=== PATIENT | female | born 1945 | race Caucasian/White ===

== ENCOUNTER 2017-09-25 12:08 | Inpatient (IN) ==
[2017-09-25] MEDS ORDERED: ONDANSETRON 4 MG/2 ML VIAL IV PRN (12:39)
[2017-09-25] MEDS ORDERED: ASPIRIN 325 MG TABLET PO STA (12:39)
[2017-09-25] MEDS ORDERED: NITROGLYCERIN 2% OINT 1 INCH/GM PACK TOP ONE (13:04)
[2017-09-25] MEDS ORDERED: NITROGLYCERIN 2% OINT 1 INCH/GM PACK TOP STA (13:04)
[2017-09-25] MEDS ORDERED: ONDANSETRON 4 MG/2 ML VIAL ONE (13:04)
[2017-09-25 13:27] LABS: Basophils # 0.1 10*3/uL (0.0-0.2); Basophils % 0.7 % (0.0-0.8); Eosinophils # 0.5 10*3/uL (0.0-0.87); Eosinophils % 5.9 % (0.00-10.9); Hematocrit 33.5 VOL% (35.7-47.0); Hemoglobin 10.7 GM/DL (12.0-16.0); Immature Granulocytes % 0.3 %; Immature Granulocytes Absolute 0.03 #; Lymphocytes # 2.8 10*3/uL (1.4-4.0); Lymphocytes % 32.1 % (21.3-54.2); Mean Corpuscular HGB Conc 31.9 GM/DL (32-36); Mean Corpuscular Hemoglobin 30 PG (27-34); Mean Corpuscular Volume 94.1 FL (87-102); Mean Platelet Volume 8.2 FL (9.6-12.0); Monocytes # 0.6 10*3/uL (0.11-0.8); Monocytes % 7.5 % (1.7-12.7); Neutrophils # 4.6 10*3/uL (1.4-7.4); Neutrophils % 53.5 % (38.7-73.9); Platelet Count 411 T/CUMM (130-400); Red Blood Count 3.56 MC/CUMM (3.8-5.5); White Blood Count 8.6 T/CUMM (4-12)
[2017-09-25 13:31] LABS: Apearance,Urine CLEAR (Clear); Bilirubin,Urine Negative (Negative); Blood, Urine Negative (Negative); Glucose,Urine (UA) Negative (Negative); Ketones,Urine Negative (Negative); Mucus,Urine Occasional /LPF (Occasional); Nitrite,Urine Negative (Negative); Protein,Urine Negative; RBC,Urine 1 /HPF (0-4); Squamous Epithelial Cell,Urine Occasional /HPF (0-10); Urine Color Yellow (Yellow); Urine Specific Gravity 1.004 (1.001-1.035); Urine Urobilinogen < 2.0 EU/DL (0.2-1.0); WBC,Urine 2 /HPF (0-6)
[2017-09-25 13:35] LABS: PT Patient Result 10.2 SECS; Partial Thromboplastin Time 24.2 SECS (0-40)
[2017-09-25 13:56] LABS: Albumin 3.5 G/DL (3.4-5.0); Bilirubin,Total 0.4 MG/DL (0.2-1.0); Calcium 9.3 MG/DL (8.5-10.1); Osmolality,Calculated 269.8 MOS/KG (273-304); Potassium 4.2 MMOL/L (3.5-5.1); Total Protein 6.7 G/DL (6.4-8.3)
[2017-09-25] MEDS ORDERED: DEXTROSE 50% 25 GM/50 ML VIAL IV PRN (17:19)
[2017-09-25] MEDS ORDERED: GLUCAGON 1 MG VIAL IM PRN (17:19)
[2017-09-25] MEDS ORDERED: ACETAMINOPHEN 500 MG TABLET PO PRN (17:19)
[2017-09-25] MEDS ORDERED: LORazepam 1 MG TABLET PO PRN (17:19)
[2017-09-25] MEDS: NITROGLYCERIN 2% OINT 1 INCH/GM PACK TOP SCH (18:26)
[2017-09-25] MEDS ORDERED: ATORVASTATIN 40 MG TABLET PO SCH (21:00)
[2017-09-25] MEDS: PANTOPRAZOLE 40 MG TABLET PO SCH (21:41)
[2017-09-25] MEDS: FLUTICASONE 50 MCG NASAL SPRAY 16 GM BOTTLE BOTH NARES SCH (21:42)
[2017-09-26] MEDS: NITROGLYCERIN 2% OINT 1 INCH/GM PACK TOP SCH ×4 (01:02→17:15)
[2017-09-26 06:16] LABS: Basophils # 0.1 10*3/uL (0.0-0.2); Basophils % 0.6 % (0.0-0.8); Eosinophils # 0.4 10*3/uL (0.0-0.87); Eosinophils % 4.5 % (0.00-10.9); Hematocrit 31.2 VOL% (35.7-47.0); Immature Granulocytes % 0.3 %; Immature Granulocytes Absolute 0.03 #; Lymphocytes # 2.3 10*3/uL (1.4-4.0); Mean Corpuscular HGB Conc 32.1 GM/DL (32-36); Mean Corpuscular Hemoglobin 30 PG (27-34); Mean Corpuscular Volume 93.4 FL (87-102); Mean Platelet Volume 8.4 FL (9.6-12.0); Monocytes # 0.7 10*3/uL (0.11-0.8); Neutrophils # 5.6 10*3/uL (1.4-7.4); Neutrophils % 61.6 % (38.7-73.9); Platelet Count 370 T/CUMM (130-400); Red Blood Count 3.34 MC/CUMM (3.8-5.5); Red Cell Distribution Width 11.9 % (9.3-17.3); White Blood Count 9.1 T/CUMM (4-12)
[2017-09-26 07:15] LABS: Risk Ratio 2.38; Thyroid Stimulating Hormone 3.88 uIU/ml (0.358-3.74); VLDL CHOLESTEROL 18.6 MG/DL
[2017-09-26] MEDS: PANTOPRAZOLE 40 MG TABLET PO SCH (08:39)
[2017-09-26] MEDS ORDERED: ASPIRIN EC 81 MG TABLET PO SCH (09:00)
[2017-09-26] MEDS ORDERED: PHENAZOPYRIDINE 95 MG TABLET PO SCH (09:00)
[2017-09-26] MEDS ORDERED: VENLAFAXINE XR 37.5 MG CAPSULE PO SCH (09:00)
[2017-09-26] MEDS ORDERED: DOCUSATE/SENNA 50-8.6 MG TABLET PO SCH (09:00)
[2017-09-26] MEDS ORDERED: LOSARTAN 50 MG TABLET PO SCH (09:00)
[2017-09-26] MEDS ORDERED: LORATADINE 10 MG TABLET PO SCH (09:00)
[2017-09-26] MEDS: FLUTICASONE 50 MCG NASAL SPRAY 16 GM BOTTLE BOTH NARES SCH (09:38)
[2017-09-26 16:15] VITALS: BP 139/66
== END 2017-09-26 20:48 | DRG 313 ==
LOC: N.ED 12:08 → SUATTDRO 14:19 → N.EDINP 14:19 → N.TELEN 16:20
PROVIDERS: ADMIT Internal Medicine; ATTEND Internal Medicine

== ENCOUNTER 2018-07-11 05:37 | Inpatient (IN) ==
[2018-07-11] MEDS ORDERED: CEFEPIME 2,000 MG in SODIUM CHLORIDE 0.9% 100 ML IV STA (05:51)
[2018-07-11] MEDS ORDERED: VANCOMYCIN INJ 1,250 MG in SODIUM CHLORIDE 0.9% 250 ML IV STA (05:51)
[2018-07-11] MEDS ORDERED: SODIUM CHLORIDE 0.9% 1,000 ML IV STA ×2 (05:51→05:58)
[2018-07-11] MEDS ORDERED: SODIUM CHLORIDE 0.9% 1,000 ML IV PRN (05:55)
[2018-07-11] MEDS ORDERED: VANCOMYCIN INJ 1,000 MG in SODIUM CHLORIDE 0.9% 250 ML IV STA (05:59)
[2018-07-11 06:10] LABS: Basophils % 0.3 % (0.0-0.8); Eosinophils % 0.6 % (0.00-10.9); Hematocrit 32.7 VOL% (35.7-47.0); Hemoglobin 10.5 GM/DL (12.0-16.0); Immature Granulocytes % 0.3 %; Immature Granulocytes Absolute 0.02 #; Lymphocytes # 0.6 10*3/uL (1.4-4.0); Lymphocytes % 8.9 % (21.3-54.2); Mean Corpuscular HGB Conc 32.1 GM/DL (32-36); Mean Corpuscular Hemoglobin 29 PG (27-34); Mean Corpuscular Volume 89.1 FL (87-102); Monocytes # 0.3 10*3/uL (0.11-0.8); Neutrophils # 5.8 10*3/uL (1.4-7.4); Neutrophils % 84.9 % (38.7-73.9); Platelet Count 392 T/CUMM (130-400); Red Blood Count 3.67 MC/CUMM (3.8-5.5); Red Cell Distribution Width 14.6 % (9.3-17.3); White Blood Count 6.9 T/CUMM (4-12)
[2018-07-11 06:26] LABS: Apearance,Urine CLEAR (Clear); Bacteria,Urine Occasional /HPF (Few); Bilirubin,Urine Negative (Negative); Blood, Urine Negative (Negative); Glucose,Urine (UA) Negative (Negative); Ketones,Urine Negative (Negative); Mucus,Urine Occasional /LPF (Occasional); Nitrite,Urine Positive (Negative); Protein,Urine Negative; RBC,Urine 1 /HPF (0-4); Squamous Epithelial Cell,Urine Occasional /HPF (0-10); Urine Color Yellow (Yellow); Urine Specific Gravity 1.011 (1.001-1.035); Urine Urobilinogen < 2.0 EU/DL (0.2-1.0); WBC,Urine 34 /HPF (0-6)
[2018-07-11 06:35] LABS: Lactic Acid 2.5 MMOL/L (0.4-2.0)
[2018-07-11 06:38] LABS: Alanine Aminotransferase 59 U/L (13-56); Albumin 3.2 G/DL (3.4-5.0); Alkaline Phosphatase 167 U/L (45-117); Aspartate Amino Transferase 70 U/L (0-37); Blood Urea Nitrogen 15 MG/DL (7-18); Calcium 9.1 MG/DL (8.5-10.1); Glucose 119 MG/DL (74-106); Osmolality,Calculated 269.2 MOS/KG (273-304); Potassium 3.6 MMOL/L (3.5-5.1); Sodium 134 MMOL/L (136-145); Total Protein 6.5 G/DL (6.4-8.3)
[2018-07-11] MEDS ORDERED: ONDANSETRON 4 MG/2 ML VIAL ONE (08:50)
[2018-07-11] MEDS ORDERED: ONDANSETRON 4 MG/2 ML VIAL IV STA (08:55)
[2018-07-11] MEDS ORDERED: DEXTROSE 50% 25 GM/50 ML VIAL IV PRN (10:59)
[2018-07-11] MEDS ORDERED: ACETAMINOPHEN 325 MG TABLET PO PRN (10:59)
[2018-07-11] MEDS ORDERED: GLUCAGON 1 MG VIAL IM PRN (10:59)
[2018-07-11] MEDS ORDERED: ONDANSETRON 4 MG/2 ML VIAL IV PRN (10:59)
[2018-07-11] MEDS ORDERED: guaiFENesin/DM ER 600-30 MG TABLET PO PRN (10:59)
[2018-07-11] MEDS ORDERED: METHOCARBAMOL 500 MG TABLET PO PRN (11:06)
[2018-07-11] MEDS ORDERED: ALUMINUM/MAGNES/SIMETH MAX STR 30 ML UDCUP PO PRN (11:06)
[2018-07-11] MEDS ORDERED: NITROGLYCERIN SL 0.4 MG TABLET SL PRN (11:06)
[2018-07-11] MEDS ORDERED: guaiFENesin 200 MG/10 ML UDCUP PO PRN (11:06)
[2018-07-11] MEDS ORDERED: AZITHROMYCIN INJ 500 MG in SODIUM CHLORIDE 0.9% 250 ML IV ONE (14:00)
[2018-07-11] MEDS: INSULIN LISPRO 100 UNIT/ML SUBCUT SCH ×3 (15:20→20:50)
[2018-07-11] MEDS: GABAPENTIN 400 MG CAPSULE PO SCH ×2 (15:23→20:44)
[2018-07-11] MEDS: ENOXAPARIN 40 MG/0.4 ML SYRINGE SUBCUT SCH (15:23)
[2018-07-11] MEDS: cefTRIAXone 1,000 MG in SYRINGE 1 EACH IV SCH (15:23)
[2018-07-11] MEDS: SODIUM CHLORIDE 0.9% 1,000 ML IV SCH (15:23)
[2018-07-11] MEDS: ATORVASTATIN 40 MG TABLET PO SCH (20:44)
[2018-07-11] MEDS: LORazepam 0.5 MG TABLET PO SCH (20:44)
[2018-07-11] MEDS: PANTOPRAZOLE 40 MG TABLET PO SCH (20:44)
[2018-07-11] MEDS: FLUTICASONE 50 MCG NASAL SPRAY 16 GM BOTTLE BOTH NARES SCH (20:49)
[2018-07-11] MEDS: POLYVINYL ALCOHOL 1.4% OPH SOLN 15 ML BOTTLE BOTH EYES SCH (20:49)
[2018-07-12] MEDS: SODIUM CHLORIDE 0.9% 1,000 ML IV SCH ×3 (04:54→18:50)
[2018-07-12 05:02] LABS: Basophils % 0.1 % (0.0-0.8); Eosinophils # 0.1 10*3/uL (0.0-0.87); Eosinophils % 0.5 % (0.00-10.9); Hematocrit 26.9 VOL% (35.7-47.0); Hemoglobin 8.6 GM/DL (12.0-16.0); Immature Granulocytes % 0.9 %; Immature Granulocytes Absolute 0.19 #; Lymphocytes # 2.5 10*3/uL (1.4-4.0); Lymphocytes % 12.3 % (21.3-54.2); Mean Corpuscular Hemoglobin 28 PG (27-34); Mean Corpuscular Volume 88.8 FL (87-102); Mean Platelet Volume 8.4 FL (9.6-12.0); Monocytes # 1.1 10*3/uL (0.11-0.8); Monocytes % 5.3 % (1.7-12.7); Neutrophils # 16.3 10*3/uL (1.4-7.4); Neutrophils % 80.9 % (38.7-73.9); Platelet Count 374 T/CUMM (130-400); Red Blood Count 3.03 MC/CUMM (3.8-5.5); Red Cell Distribution Width 15.4 % (9.3-17.3); White Blood Count 20.1 T/CUMM (4-12)
[2018-07-12 05:19] LABS: Calcium 8.4 MG/DL (8.5-10.1); Osmolality,Calculated 274.8 MOS/KG (273-304); Potassium 4.5 MMOL/L (3.5-5.1)
[2018-07-12 05:30] LABS: Band Neutrophils 12 % (0-10); Eosinophils 1 % (0-10); Lymphocytes 12 % (20-55); Segmented Neutrophils 74 % (50-85); Total Cells Counted 100
[2018-07-12 05:31] LABS: Anisocytosis 1+; Hypochromasia 1+
[2018-07-12 05:32] LABS: Platelet Estimate Adequate
[2018-07-12] MEDS: INSULIN LISPRO 100 UNIT/ML SUBCUT SCH ×4 (07:49→20:32)
[2018-07-12] MEDS: DOCUSATE/SENNA 50-8.6 MG TABLET PO SCH (08:37)
[2018-07-12] MEDS: VENLAFAXINE XR 37.5 MG CAPSULE PO SCH (08:37)
[2018-07-12] MEDS: LORazepam 0.5 MG TABLET PO SCH ×2 (08:37→20:26)
[2018-07-12] MEDS: POLYVINYL ALCOHOL 1.4% OPH SOLN 15 ML BOTTLE BOTH EYES SCH ×2 (08:37→20:27)
[2018-07-12] MEDS: ASPIRIN EC 81 MG TABLET PO SCH (08:37)
[2018-07-12] MEDS: GABAPENTIN 400 MG CAPSULE PO SCH ×3 (08:37→20:26)
[2018-07-12] MEDS: LORATADINE 10 MG TABLET PO SCH (08:37)
[2018-07-12] MEDS: PHENAZOPYRIDINE 95 MG TABLET PO SCH (08:37)
[2018-07-12] MEDS: PANTOPRAZOLE 40 MG TABLET PO SCH ×2 (08:37→20:26)
[2018-07-12] MEDS: FLUTICASONE 50 MCG NASAL SPRAY 16 GM BOTTLE BOTH NARES SCH ×2 (08:45→20:27)
[2018-07-12] MEDS ORDERED: AZITHROMYCIN INJ 250 MG in SODIUM CHLORIDE 0.9% 250 ML IV SCH (14:00)
[2018-07-12] MEDS: ENOXAPARIN 40 MG/0.4 ML SYRINGE SUBCUT SCH (14:29)
[2018-07-12] MEDS: cefTRIAXone 1,000 MG in SYRINGE 1 EACH IV SCH (14:29)
[2018-07-12] MEDS: ATORVASTATIN 40 MG TABLET PO SCH (20:26)
[2018-07-13] MEDS: SODIUM CHLORIDE 0.9% 1,000 ML IV SCH ×2 (02:08→20:17)
[2018-07-13 05:15] LABS: Basophils % 0.2 % (0.0-0.8); Eosinophils # 0.5 10*3/uL (0.0-0.87); Eosinophils % 2.7 % (0.00-10.9); Hematocrit 27.1 VOL% (35.7-47.0); Hemoglobin 8.3 GM/DL (12.0-16.0); Immature Granulocytes % 1.4 %; Immature Granulocytes Absolute 0.24 #; Lymphocytes # 2.8 10*3/uL (1.4-4.0); Lymphocytes % 16.5 % (21.3-54.2); Mean Corpuscular HGB Conc 30.6 GM/DL (32-36); Mean Corpuscular Hemoglobin 29 PG (27-34); Mean Corpuscular Volume 93.4 FL (87-102); Mean Platelet Volume 8.3 FL (9.6-12.0); Monocytes # 0.8 10*3/uL (0.11-0.8); Neutrophils # 12.4 10*3/uL (1.4-7.4); Neutrophils % 74.2 % (38.7-73.9); Platelet Count 336 T/CUMM (130-400); Red Cell Distribution Width 15.5 % (9.3-17.3); White Blood Count 16.8 T/CUMM (4-12)
[2018-07-13 05:44] LABS: Albumin 2.4 G/DL (3.4-5.0); Bilirubin,Direct 0.11 MG/DL (0.0-0.20); Bilirubin,Indirect 0.3 MG/DL (0.0-1.0); Bilirubin,Total 0.4 MG/DL (0.2-1.0); Calcium 8.9 MG/DL (8.5-10.1); Osmolality,Calculated 276.5 MOS/KG (273-304); Potassium 4.2 MMOL/L (3.5-5.1)
[2018-07-13] MEDS: DOCUSATE/SENNA 50-8.6 MG TABLET PO SCH (08:37)
[2018-07-13] MEDS: PHENAZOPYRIDINE 95 MG TABLET PO SCH (08:38)
[2018-07-13] MEDS: LORazepam 0.5 MG TABLET PO SCH ×2 (08:38→20:19)
[2018-07-13] MEDS: PANTOPRAZOLE 40 MG TABLET PO SCH ×2 (08:38→20:19)
[2018-07-13] MEDS: VENLAFAXINE XR 37.5 MG CAPSULE PO SCH (08:39)
[2018-07-13] MEDS: GABAPENTIN 400 MG CAPSULE PO SCH ×3 (08:39→20:19)
[2018-07-13] MEDS: DOCUSATE SODIUM 100 MG CAPSULE PO PRN (08:39)
[2018-07-13] MEDS: ASPIRIN EC 81 MG TABLET PO SCH (08:39)
[2018-07-13] MEDS: LORATADINE 10 MG TABLET PO SCH (08:39)
[2018-07-13] MEDS: FLUTICASONE 50 MCG NASAL SPRAY 16 GM BOTTLE BOTH NARES SCH ×2 (08:40→20:20)
[2018-07-13] MEDS: POLYVINYL ALCOHOL 1.4% OPH SOLN 15 ML BOTTLE BOTH EYES SCH ×2 (08:40→22:28)
[2018-07-13] MEDS: INSULIN LISPRO 100 UNIT/ML SUBCUT SCH ×4 (09:20→22:00)
[2018-07-13] MEDS: ENOXAPARIN 40 MG/0.4 ML SYRINGE SUBCUT SCH (16:27)
[2018-07-13] MEDS: PIPERACILLIN/TAZOBACTAM 3,375 MG in SODIUM CHLORIDE 0.9% 100 ML IV SCH ×2 (16:28→22:17)
[2018-07-13] MEDS ORDERED: VANCOMYCIN INJ 1,250 MG in SODIUM CHLORIDE 0.9% 250 ML IV SCH (17:00)
[2018-07-13] MEDS: ATORVASTATIN 40 MG TABLET PO SCH (20:19)
[2018-07-14 05:14] LABS: Basophils # 0.1 10*3/uL (0.0-0.2); Basophils % 0.5 % (0.0-0.8); Eosinophils # 0.5 10*3/uL (0.0-0.87); Eosinophils % 4.5 % (0.00-10.9); Hematocrit 26.2 VOL% (35.7-47.0); Hemoglobin 8.1 GM/DL (12.0-16.0); Immature Granulocytes % 0.6 %; Immature Granulocytes Absolute 0.06 #; Lymphocytes # 2.5 10*3/uL (1.4-4.0); Lymphocytes % 22.7 % (21.3-54.2); Mean Corpuscular HGB Conc 30.9 GM/DL (32-36); Mean Corpuscular Hemoglobin 28 PG (27-34); Mean Platelet Volume 9.3 FL (9.6-12.0); Monocytes # 0.7 10*3/uL (0.11-0.8); Monocytes % 6.5 % (1.7-12.7); Neutrophils # 7.1 10*3/uL (1.4-7.4); Neutrophils % 65.2 % (38.7-73.9); Platelet Count 297 T/CUMM (130-400); Red Blood Count 2.88 MC/CUMM (3.8-5.5); Red Cell Distribution Width 15.2 % (9.3-17.3); White Blood Count 10.8 T/CUMM (4-12)
[2018-07-14 05:37] LABS: Albumin 2.3 G/DL (3.4-5.0); Bilirubin,Total 0.4 MG/DL (0.2-1.0); Calcium 8.4 MG/DL (8.5-10.1); Osmolality,Calculated 277.4 MOS/KG (273-304); Potassium 4.2 MMOL/L (3.5-5.1)
[2018-07-14 05:42] LABS: Hypochromasia 1+; Platelet Estimate Adequate
[2018-07-14] MEDS: PIPERACILLIN/TAZOBACTAM 3,375 MG in SODIUM CHLORIDE 0.9% 100 ML IV SCH (06:10)
[2018-07-14] MEDS: INSULIN LISPRO 100 UNIT/ML SUBCUT SCH ×2 (08:13→18:51)
[2018-07-14] MEDS: DOCUSATE SODIUM 100 MG CAPSULE PO PRN (08:45)
[2018-07-14] MEDS: PHENAZOPYRIDINE 95 MG TABLET PO SCH (08:45)
[2018-07-14] MEDS: ASPIRIN EC 81 MG TABLET PO SCH (08:45)
[2018-07-14] MEDS: FLUTICASONE 50 MCG NASAL SPRAY 16 GM BOTTLE BOTH NARES SCH ×2 (08:46→20:03)
[2018-07-14] MEDS: GABAPENTIN 400 MG CAPSULE PO SCH ×3 (08:46→20:03)
[2018-07-14] MEDS: LORATADINE 10 MG TABLET PO SCH (08:46)
[2018-07-14] MEDS: DOCUSATE/SENNA 50-8.6 MG TABLET PO SCH (08:46)
[2018-07-14] MEDS: LORazepam 0.5 MG TABLET PO SCH ×2 (08:46→20:03)
[2018-07-14] MEDS: PANTOPRAZOLE 40 MG TABLET PO SCH ×2 (08:46→20:03)
[2018-07-14] MEDS: VENLAFAXINE XR 37.5 MG CAPSULE PO SCH (08:46)
[2018-07-14] MEDS: LEVOFLOXACIN 750 MG TABLET PO SCH (09:36)
[2018-07-14] MEDS ORDERED: IRON SUCROSE 200 MG in SODIUM CHLORIDE 0.9% 100 ML IV ONE (10:00)
[2018-07-14] MEDS: POLYVINYL ALCOHOL 1.4% OPH SOLN 15 ML BOTTLE BOTH EYES SCH (11:59)
[2018-07-14] MEDS: ENOXAPARIN 40 MG/0.4 ML SYRINGE SUBCUT SCH (16:31)
[2018-07-14] MEDS: ATORVASTATIN 40 MG TABLET PO SCH (20:04)
[2018-07-14] MEDS: SODIUM CHLORIDE 0.9% 1,000 ML IV SCH (20:07)
[2018-07-15] MEDS: INSULIN LISPRO 100 UNIT/ML SUBCUT SCH ×3 (00:33→12:32)
[2018-07-15] MEDS: POLYVINYL ALCOHOL 1.4% OPH SOLN 15 ML BOTTLE BOTH EYES SCH ×2 (00:34→09:14)
[2018-07-15 04:50] LABS: Basophils % 0.4 % (0.0-0.8); Eosinophils # 0.6 10*3/uL (0.0-0.87); Eosinophils % 6.5 % (0.00-10.9); Hematocrit 26.2 VOL% (35.7-47.0); Hemoglobin 8.2 GM/DL (12.0-16.0); Immature Granulocytes % 1.3 %; Immature Granulocytes Absolute 0.12 #; Lymphocytes % 21.8 % (21.3-54.2); Mean Corpuscular HGB Conc 31.3 GM/DL (32-36); Mean Corpuscular Hemoglobin 28 PG (27-34); Mean Corpuscular Volume 89.7 FL (87-102); Mean Platelet Volume 8.4 FL (9.6-12.0); Monocytes # 0.8 10*3/uL (0.11-0.8); Neutrophils # 5.6 10*3/uL (1.4-7.4); Platelet Count 379 T/CUMM (130-400); Red Blood Count 2.92 MC/CUMM (3.8-5.5); Red Cell Distribution Width 14.8 % (9.3-17.3); White Blood Count 9.1 T/CUMM (4-12)
[2018-07-15 05:13] LABS: Albumin 2.3 G/DL (3.4-5.0); Bilirubin,Total 0.8 MG/DL (0.2-1.0); Calcium 8.7 MG/DL (8.5-10.1); Osmolality,Calculated 279.3 MOS/KG (273-304); Potassium 3.9 MMOL/L (3.5-5.1); Total Protein 6.1 G/DL (6.4-8.3)
[2018-07-15] MEDS: SODIUM CHLORIDE 0.9% 1,000 ML IV SCH ×2 (05:31→09:04)
[2018-07-15] MEDS ORDERED: IRON SUCROSE 200 MG in SODIUM CHLORIDE 0.9% 100 ML IV ONE (08:11)
[2018-07-15] MEDS: LORATADINE 10 MG TABLET PO SCH (08:54)
[2018-07-15] MEDS: PANTOPRAZOLE 40 MG TABLET PO SCH (08:54)
[2018-07-15] MEDS: VENLAFAXINE XR 37.5 MG CAPSULE PO SCH (08:54)
[2018-07-15] MEDS: FLUTICASONE 50 MCG NASAL SPRAY 16 GM BOTTLE BOTH NARES SCH (08:54)
[2018-07-15] MEDS: PHENAZOPYRIDINE 95 MG TABLET PO SCH (08:54)
[2018-07-15] MEDS: GABAPENTIN 400 MG CAPSULE PO SCH (08:55)
[2018-07-15] MEDS: LORazepam 0.5 MG TABLET PO SCH (08:55)
[2018-07-15] MEDS: DOCUSATE/SENNA 50-8.6 MG TABLET PO SCH (08:55)
[2018-07-15] MEDS: LEVOFLOXACIN 750 MG TABLET PO SCH (08:55)
[2018-07-15] MEDS: ASPIRIN EC 81 MG TABLET PO SCH (08:55)
[2018-07-15] MEDS: DOCUSATE SODIUM 100 MG CAPSULE PO PRN (10:06)
[2018-07-15 12:32] VITALS: BP 161/71
== END 2018-07-15 12:19 | DRG 871 ==
LOC: N.ED 05:37 → N.EDINP 11:00 → SUATTDRO 11:00 → N.EDINP 12:44 → N.4E 12:51
PROVIDERS: ADMIT Internal Medicine; ATTEND Internal Medicine